=== PATIENT | female | born 1970 | race Caucasian/White ===

== ENCOUNTER 2017-02-14 17:39 | Emergency (ER) | payer MEDICAID ==
[~2017-02-14] VITALS: Ht 162.6 cm; Wt 54.8 kg
[~2017-02-14 17:39] MED LIST: CYCL-259 PO; HYDR-882 PO; HYDR200T PO
[2017-02-14 17:42] VITALS: BP 121/82
== END 2017-02-14 17:59 | disposition home or self-care (01) ==
LOC: ED 17:52
DX: Z00.00 Encounter for general adult medical examination without abnormal findings (principal)
CPT/HCPCS: 99281